=== PATIENT | female | born 1990 | race Caucasian/White ===

== ENCOUNTER → 2018-08-06 14:47 | Outpatient (CLI) | payer OTHER, SELFPAY ==
[2018-08-06 20:59] LABS: Basophils % 0.3 % (0.1-2.0); Eosinophils # 0.2 K/mm3 (0.0-0.4); Eosinophils % 1.4 % (0.1-12.0); Hematocrit 44.9 % (37.0-47.0); Hemoglobin 15.7 g/dL (12.2-16.2); Lymphocytes % 18.4 % (10-50); Mean Corpuscular HGB Conc 34.9 g/dL (31.8-35.4); Mean Corpuscular Hemoglobin 32.8 pg (27.0-31.2); Monocytes # 0.4 K/mm3 (0.1-1.0); Monocytes % 3.8 % (1.7-9.3); Neutrophils # 8.3 K/mm3 (1.8-7.8); Neutrophils % 76.1 % (37.0-80.0); Platelet Count 243 K/mm3 (142-424); Red Blood Count 4.78 M/mm3 (4.20-5.40); Red Cell Distribution Width 12.7 % (11.5-17.5); White Blood Count 10.9 K/mm3 (4.8-10.8)
[2018-08-08 08:16] LABS: Rapid Plasma Reagin Ab Titer Non Reactive (NonRea<1:1)
[2018-08-08 10:47] LABS: HIV Screen 4th Generation wRfx Non Reactive (Non Reactive); Hepatitis B Surface Antigen Negative (Negative); Hepatitis C Antibody <0.1 s/co ratio (0.0-0.9); Rubella Antibodies, IgG 0.94 index (Immune >0.99)
== END ==
PROVIDERS: Visit Provider Nurse Practitioner Obstetrics & Gynecology
DX: Z34.90 Encounter for supervision of normal pregnancy, unspecified, unspecified trimester (principal)
CPT/HCPCS: 36415; 85025; 86592; 86703; 86762; 86850; 87340; 87380; G0432

== ENCOUNTER → 2018-08-11 09:13 | Outpatient (CLI) | payer OTHER, SELFPAY ==
--- NOTE | 2018-08-11 09:16 | US_ITS ---
US OB transvaginal HISTORY: ITS.REASON: US OB Dates ORDERING PHYSICIAN: Juanito Wang MD PATIENT AGE: 28 years COMPARISON: None FINDINGS: An intrauterine gestational sac is present with a pole with a crown-rump length of 3.98cm correlating to gestational age of 11w0d. heart tones are present with an FHR of 160 bpm's. Yolk sac is noted. The amnion and chorion have not yet fused. Adnexa: 2.6 cm right corpus luteum cyst. IMPRESSION: Live intrauterine gestation at 11 weeks 0 days as described above. Estimated due date by Ultrasound is 03/02/2019
== END ==
PROVIDERS: Visit Provider Nurse Practitioner Obstetrics & Gynecology
DX: O26.841 Uterine size-date discrepancy, first trimester (principal)
CPT/HCPCS: 76817

== ENCOUNTER → 2018-10-15 13:20 | Outpatient (CLI) | payer OTHER, SELFPAY ==
--- NOTE | 2018-10-15 13:25 | US_ITS ---
US OB /maternal detail: INDICATION: ITS.REASON: US OB Complete ORDERING PHYSICIAN: Juanito Wang MD PATIENT AGE: 28 years TECHNIQUE: ultrasound transabdominal scanning. COMPARISON: No previous relevant studies. FINDINGS: Single viable intrauterine gestation. Breech position. Placenta: Anterior placenta grade . There is average amount fluid. The cervix appears satisfactory. Closed and measuring 4 cm in length. Complete survey performed and was unremarkable on the submitted images as in PACS. No discrete anomalies identified on survey imaging by technologist. Active fetus. Three-vessel cord with satisfactory umbilical cord insertion. 4- chamber heart noted. Survey of brain & ventricles unremarkable. Face and neck survey unremarkable. Diaphragm and chest views unremarkable. Abdomen: Both kidneys noted and unremarkable. Stomach noted and satisfactory. Spine: Survey of the spine satisfactory with no anomalies identified nor imaged. Both arms and legs noted. Amniotic Fluid: Adequate. Maternal adnexa: No significant findings. Measurements: Average ultrasound age 20w0d. Gestational Age 20w1d. Estimated due date by ultrasound age 1203/04/2019. Estimated weight 323 grams. BPD = 19w6d OFD = 20w6d HC = 19w5d AC = 20w0d FL = 20w0d Growth Percentile= 35 Heart Rate = 143 Cerebellum = 20w0d Humerus = 19w6d HC/AC is 1.16 (1.09-1.26). CI is 74% (70-86%). FL/BPD is 70%. FL/AC is 22%. IMPRESSION: There is a single live fetus which is in breech presentation. heart body motion noted. Average ultrasound age is 20 weeks and 0 days. All parameters correlate. No obvious anomalies. Please see above for details
== END ==
PROVIDERS: Visit Provider Nurse Practitioner Obstetrics & Gynecology
DX: Z36.0 Encounter for antenatal screening for chromosomal anomalies (principal)
CPT/HCPCS: 76811

== ENCOUNTER → 2018-11-27 10:49 | Outpatient (CLI) | payer OTHER, SELFPAY ==
[2018-11-27 12:19] LABS: Glucose,Fasting 87 mg/dL (60-105)
[2018-11-27 12:54] LABS: Glucose 1 Hour 154 mg/dL (74-106)
== END ==
PROVIDERS: Visit Provider Nurse Practitioner Obstetrics & Gynecology
DX: Z34.90 Encounter for supervision of normal pregnancy, unspecified, unspecified trimester (principal)
CPT/HCPCS: 36415; 82951

== ENCOUNTER → 2018-12-04 09:57 | Outpatient (CLI) | payer OTHER, SELFPAY ==
[2018-12-04 11:39] LABS: Glucose,Fasting 87 mg/dL (60-105)
[2018-12-04 14:03] LABS: Glucose 1 Hour 165 mg/dL (74-106); Glucose 2 Hour 144 mg/dL (74-106)
[2018-12-04 14:04] LABS: Glucose 3 Hour 94 mg/dL (74-106)
== END ==
PROVIDERS: Visit Provider Nurse Practitioner Obstetrics & Gynecology
DX: O99.814 Abnormal glucose complicating childbirth (principal)
CPT/HCPCS: 36415; 82951

== ENCOUNTER → 2019-01-13 09:32 | Outpatient (CLI) | payer OTHER, SELFPAY ==
--- NOTE | 2019-01-13 09:51 | US_ITS ---
PROCEDURE: US OB BIOPHYSICAL PROFILE CLINICAL INDICATION: US OB- BPP Growth- DFM LGA Decreased movement FINDINGS: There is a single live fetus present which is in cephalic presentation. Placenta is anterior. heart rate is 152 beats per minute. Average ultrasound age is 32 weeks and 5 days. BPD 32 weeks 1 day, OFD 32 weeks 0 day, HC 32 weeks 0 day, AC 33 weeks 1 day, FL 33 weeks 1 day. All parameters correlate. MAX is 16 cm which is within normal limits. Biophysical profile is 8 of 8 IMPRESSION: Single live fetus in cephalic presentation with an average ultrasound age of 32 weeks 5 days with a biophysical profile of 8 of 8 and MAX of 16 cm Dictated by: Jos Chiu MD 01/13/2019 18:47 Electronically signed by Jos Chiu MD in [facility] 01/13/2019 18:47
== END ==
PROVIDERS: Visit Provider Nurse Practitioner Obstetrics & Gynecology
DX: O36.60X0 Maternal care for excessive fetal growth, unspecified trimester, not applicable or unspecified (principal); O36.8131 Decreased fetal movements, third trimester, fetus 1
CPT/HCPCS: 76816; 76819

== ENCOUNTER → 2019-02-02 16:06 | Outpatient (CLI) | payer OTHER, SELFPAY | PROVIDERS: Visit Provider Nurse Practitioner Obstetrics & Gynecology | DX: Z34.90 Encounter for supervision of normal pregnancy, unspecified, unspecified trimester (principal) | CPT/HCPCS: 86403 ==

== ENCOUNTER → 2019-02-08 13:49 | Outpatient (CLI) | payer OTHER, SELFPAY ==
--- NOTE | 2019-02-08 13:50 | US_ITS ---
PROCEDURE: US OB FOLLOW UP CLINICAL INDICATION: US OB BPP Growth- LGA Position Follow-up large for gestational age COMPARISON: US OB BIOPHYSICAL PROFILE from 01/13/2019 FINDINGS: There is a single live fetus which is in cephalic presentation. heart and body motion and breathing motion noted. Cervix is closed at 4 cm. Placenta is anterior and grade 2. Heart rate is 142 beats per minute. Average ultrasound age is 34 weeks 6 days. BPD 34 weeks 3 days, OFD 35 weeks 0 days, HC 34 weeks 2 days, AC 35 weeks 2 days, FL 35 weeks 2 days.. All parameters correlate. Estimated weight is 2574 g which is 15th percentile. Biophysical profile is 8 of 8. MAX 16 cm. IMPRESSION: Live IUP at 34 weeks 6 days at 2574 g which is 15 percentile. Normal MAX. Biophysical profile 8 of 8 Anterior grade 2 placenta Dictated by: Jos Chiu MD 02/09/2019 08:19 Electronically signed by Jos Chiu MD in [facility] 02/09/2019 08:19
== END ==
PROVIDERS: Visit Provider Nurse Practitioner Obstetrics & Gynecology
DX: O32.0XX0 Maternal care for unstable lie, not applicable or unspecified (principal); O36.60X0 Maternal care for excessive fetal growth, unspecified trimester, not applicable or unspecified
CPT/HCPCS: 76816; 76819

== ENCOUNTER 2019-02-23 16:06 | Inpatient (IN) ==
--- NOTE | 2019-02-23 17:19 | Progress Note ---
Internal Medicine - PN: Subj *Date: 02/23/19 *Time: 17:15 Interval history: She is here for induction of labor. She has a very narrow pelvis and the baby's head is quite high. The baby is small for gestational age at 15th centile. As result of that we have elected to induce her labor at term. Exam Vital signs and Labs for Last 24 Hours: Temp Pulse Resp BP Pulse Ox 97.6 F 74 18 132/84 96 02/23/19 16:52 02/23/19 16:52 02/23/19 16:52 02/23/19 16:52 02/23/19 16:52 I & O for Last 24 hours: Intake & Output 02/21/19 02/22/19 02/23/19 02/24/19 11:59 11:59 11:59 11:59 Weight 255 lb - Constitutional no acute distress Assessment and Plan (1) Normal delivery procedure Current visit: Yes Status: Acute Category: Medical Code(s): O80 - Encounter for full-term uncomplicated delivery (2) Maternal obesity affecting , antepartum Current visit: Yes Status: Acute Category: Medical Code(s): O99.210 - Obesity complicating , unspecified trimester - Assessment and plan all Dx Assessment and Plan for all problems:: Her cervix is 1 to 2 cm 25% -3. I have not inserted Cervidil. We will plan to start oxytocin in the morning and ruptured membranes.
--- NOTE | 2019-02-23 17:23 | History & Physical Report ---
OB - H&P: HPI Antepartum - History of Present Illness Chief complaint: Small for gestational age, 15th centile. Narrow pelvis, term History of present illness: She is a 28-year-old 1 para 0 obese lady who had a recent ultrasound that showed the baby at only 15th centile. The head is still quite high and since she is 39 weeks and small for gestational age we have elected to induce her labor at term. She is also a smoker. - History of Present Criteria for establishing EDC:: LMP confirmed by 1st trimester US care: good care Ultrasounds: normal 1st trimester US, normal mid trimester US Obstetrical complications: growth restriction, other Medical complications: none [facility] History I have reviewed the patient's past medical history: Yes *Have you ever received a pneumonia vaccine?: No *Have you received a flu vaccine this season?: No Other Surgeries: Yes: No Previous Surgery. No: Amputation: No Fractures: No - *Social History Smoking Status: Current every day smoker Tobacco Type: cigarettes # Packs/Day (cigarettes): 1 Alcohol Intake: never Substance Use Type: marijuana *Occupational Status:: unemployed *Travel in the last 8 weeks: None Family Hx:: Coronary Artery Disease, Diabetes, Hyperlipidemia, Hypertension, Cancer Para: 0 Review of Systems - Review of Systems Review of systems:: pertinent systems reviewed and negative unless documented below Meds Home Medications Medication Instructions Recorded Confirmed Type ondansetron 4 mg disintegrating 4 mg PO Q6H #30 tab 09/03/18 02/18/19 Rx tablet prenat.vits,ata,rcq-ihqt-mnaic 1 tab PO DAILY #30 tab 09/03/18 02/18/19 Rx ferrous sulfate 325 mg (65 mg 325 mg PO DAILY #30 tab 10/01/18 02/18/19 Rx iron) tablet ranitidine HCl 150 mg tablet 150 mg PO BID #60 tab 01/07/19 02/18/19 Rx polyethylene glycol 3350 17 17 g PO DAILY #119 g 02/18/19 02/18/19 Rx gram/dose oral powder Allergies Allergy/AdvReac Type Severity Reaction Status Date / Time No Known Allergies Allergy Verified 02/18/19 09:00 OB - H&P: Exam - Physical Exam Vital signs: Temp Pulse Resp BP Pulse Ox 97.6 F 74 18 132/84 96 02/23/19 16:52 02/23/19 16:52 02/23/19 16:52 02/23/19 16:52 02/23/19 16:52 - Constitutional no acute distress - Routine HEENT Exam Head: Present: normocephalic Eye: Present: EOMI, PERRL ENT: Present: mucous membranes moist - Routine Neck Exam Present: supple, full ROM - Routine Respiratory Exam Absent: accessory muscle use (good air entry bilaterally), respiratory distress, wheezes, crackles - Routine Cardiovascular Exam Present: RRR. Absent: murmur - Routine Abdominal Exam Present: soft, normoactive bowel sounds. Absent: tenderness, distended, guarding - Routine Rectal Exam Patient deferred: visual exam, digital exam - Routine Exam Patient deferred: external exam, groin exam, perineal exam - Routine Extremities Exam Present: full ROM. Absent: cyanosis, edema - Routine Skin Exam Present: intact. Absent: cyanosis - Routine Neurological Exam Present: alert, oriented X3 - Routine Psychiatric Exam Present: normal affect OB - A/P Antepartum (1) Normal delivery procedure Current visit: Yes Status: Acute (2) Maternal obesity affecting , antepartum Current visit: Yes Status: Acute (3) Smoking history Current visit: Yes Status: Acute (4) Intrauterine growth restriction (IUGR) affecting care of mother, third trimester, single gestation Current visit: Yes Status: Acute - Additional Plan Planning to breastfeed?: No Plan: induction Additional Information:: She has a small for gestational age at term and we have elected to deliver her. We have inserted Cervidil.
[2019-02-23 18:31] LABS: Microscopic, Urine URINE MICROSCOPIC (MICROSCOPIC)
[2019-02-23 18:38] LABS: Appearance,Urine CLEAR (Clear); Blood, Urine Negative (Negative); Color,Urine YELLOW (Yellow); Glucose,Urine (UA) Negative (Negative); Ketones,Urine Negative (Negative); Leukocyte Esterase,Urine Negative (Negative); PH,Urine 5.5 (5.0-8.5); Protein,Urine Negative (Negative); Specific Gravity, Urine >= 1.030 (1.005-1.030); Urobilinogen,Urine 0.2 EU/dl (0.2)
[2019-02-23 18:40] LABS: Bilirubin,Urine Negative (Negative)
[2019-02-23 18:45] LABS: Amphetamine/Metha Screen,Urine Negative ng/mL (<1000); Barbiturates Screen,Urine Negative ng/mL (<200); Benzodiazepines Screen,Urine Negative ng/mL (<200); Cannabinoid Screen,Urine Positive ng/mL (<50); Cocaine Screen,Urine Negative ng/mL (<300); Methadone Screen,Urine Negative ng/mL (<300); Opiate Screen,Urine Negative ng/mL (<300); Phencyclidine Screen,Urine Negative ng/mL (<25)
[2019-02-23 18:50] LABS: Bacteria,Urine Trace /lpf; WBC,Urine Occasional #/hpf (0-3)
[2019-02-23 19:09] LABS: Basophils % 0.2 % (0.1-2.0); Eosinophils % 0.3 % (0.1-12.0); Hematocrit 42.1 % (37.0-47.0); Hemoglobin 14.4 g/dL (12.2-16.2); Lymphocytes # 1.7 K/mm3 (0.7-4.5); Lymphocytes % 15.1 % (10-50); Mean Corpuscular HGB Conc 34.3 g/dL (31.8-35.4); Mean Corpuscular Volume 95.6 fl (81-99); Mean Platelet Volume 10.9 fl (7.4-10.4); Monocytes # 0.4 K/mm3 (0.1-1.0); Monocytes % 3.9 % (1.7-9.3); Neutrophils % 80.5 % (37.0-80.0); Platelet Count 242 K/mm3 (142-424); Red Cell Distribution Width 13.1 % (11.5-17.5); White Blood Count 11.2 K/mm3 (4.8-10.8)
[2019-02-24 08:58] VITALS: BP 123/70
--- NOTE | 2019-02-24 09:37 | Progress Note ---
Labor Note - Subjective: Date: 02/24/19 Time: 09:35 regular contraction - Objective: NST:: Reactive Contractions:: every 2-3 minutes Effacement:: 50% Station: -3 Membranes: artificially ruptured - Fetus: Monitoring?: Yes monitoring type:: Internal Comment:: I ruptured her membranes and inserted an IUPC as well as scalp clip. - Assessment: Labor progressing?: Yes Cephalopelvic disproportion?: No Patient Problems: All Active Problems Normal delivery procedure (Acute) Maternal obesity affecting , antepartum (Acute) Smoking history (Acute) Intrauterine growth restriction (IUGR) affecting care of mother, third trimester, single gestation (Acute) (Acute) - Plan: Anesthesia for epidural?: Yes Continue to labor down?: Yes Plan for ?: No Continue to monitor?: Yes Start pushing?: No
--- NOTE | 2019-02-24 11:05 | Progress Note ---
[facility] Anesthesia Checklist - Structural Data Admitted From: Inpatient Planned Operative Procedure/s: labor epidural Consent for Planned Operative Procedure(s) Verified: Yes - Airway Assessment C-Spine Mobility Assessed: Yes TMJ Mobility Assessed: Yes Dentition: Good Dentition - Neurological Assessment Level of Consciousness: Awake, Alert, Appropriate - Anesthesia Plan Anesthesia Risk discussed: Yes Anesthesia Plan: Verified ASA Class: II Anesthesia Type: Epidural [facility] History I have reviewed the patient's past medical history: Yes *Have you ever received a pneumonia vaccine?: No *Have you received a flu vaccine this season?: No Anesthesia experience/problems:: none Other Surgeries: Yes: No Previous Surgery. No: Amputation: No Fractures: No - *Social History Smoking Status: Current every day smoker Tobacco Type: cigarettes # Packs/Day (cigarettes): 1 Alcohol Intake: never Substance Use Type: marijuana *Occupational Status:: unemployed *Travel in the last 8 weeks: None Family Hx:: Coronary Artery Disease, Diabetes, Hyperlipidemia, Hypertension, Cancer Para: 0
--- NOTE | 2019-02-24 11:44 | Progress Note ---
Labor Note - Subjective: Date: 02/24/19 Time: 11:43 regular contraction - Objective: NST:: Reactive Contractions:: every 2-3 minutes Cervical Dilation:: 5 Station: -2 Membranes: artificially ruptured - Fetus: Monitoring?: Yes monitoring type:: Internal - Assessment: Labor progressing?: Yes Cephalopelvic disproportion?: No Patient Problems: All Active Problems Normal delivery procedure (Acute) Maternal obesity affecting , antepartum (Acute) Smoking history (Acute) Intrauterine growth restriction (IUGR) affecting care of mother, third trimester, single gestation (Acute) (Acute) - Plan: Anesthesia for epidural?: Yes Continue to labor down?: Yes Plan for ?: No Continue to monitor?: Yes Start pushing?: No Continue pushing?: No
--- NOTE | 2019-02-24 12:36 | Progress Note ---
Labor Note - Subjective: Date: 02/24/19 Time: 12:35 regular contraction - Objective: NST:: Reactive Contractions:: every 2-3 minutes Cervical Dilation:: 9 Effacement:: 100% Station: 0 Membranes: artificially ruptured - Fetus: Monitoring?: Yes monitoring type:: Internal - Assessment: Labor progressing?: Yes Cephalopelvic disproportion?: No Patient Problems: All Active Problems Normal delivery procedure (Acute) Maternal obesity affecting , antepartum (Acute) Smoking history (Acute) Intrauterine growth restriction (IUGR) affecting care of mother, third trimester, single gestation (Acute) (Acute) - Plan: Anesthesia for epidural?: Yes Continue to labor down?: Yes Plan for ?: No Continue to monitor?: Yes Start pushing?: No
--- NOTE | 2019-02-24 13:56 | Progress Note ---
Labor Note - Subjective: Date: 02/24/19 Time: 13:54 regular contraction - Objective: Contractions:: every 2-3 minutes Cervical Dilation:: 9-10 Effacement:: 100% Station: +1 Membranes: artificially ruptured - Fetus: Monitoring?: Yes monitoring type:: Internal - Assessment: Labor progressing?: Yes Cephalopelvic disproportion?: No Patient Problems: All Active Problems Normal delivery procedure (Acute) Maternal obesity affecting , antepartum (Acute) Smoking history (Acute) Intrauterine growth restriction (IUGR) affecting care of mother, third trimester, single gestation (Acute) (Acute) - Plan: Anesthesia for epidural?: Yes Continue to labor down?: Yes Plan for ?: No Continue to monitor?: Yes Start pushing?: Yes
--- NOTE | 2019-02-24 14:48 | Procedure Note ---
- Delivery Note Delivery Date:: 02/24/19 Delivery Time:: 14:29 Anesthesia Type: Epidural Was labor medically induced?: Yes Induction method: per misoprostol protocol Gestational age (weeks): 39 delivered prior to 39 weeks?: No Justification for early elective delivery:: IUGR Gender: Female at 1 minute: 7 at 5 minutes: 9 LAC or MLE?: LAC Delivery Procedure:: She is a 28-year-old 1 now para 0 who was 39 weeks gestational age. She was known to have a small for gestational age as result that was brought in for induction of labor at term. She had Cervidil placed on the evening of February 23, 2019. In the morning of February 24 she had her membranes ruptured and under labor epidural progressed to full dilation. She delivered spontaneously a liveborn female child at 2:29 PM in the afternoon. Baby had Apgars of 7 at 1 minute and 9 at 5 minutes. On deliver the head the anterior shoulder then rapidly delivered followed by the rest of the infant's body atraumatically. The baby was vigorous and cried. We allowed the cord to continue to pulsate for approximately 1 minute. The cord was then doubly clamped and cut. The baby was then placed on the mother's abdomen for further care. The nurses assigned Apgars of 7 at 1 and 9 at 5 minutes. We then obtained cord blood as well as cord pH. Using gentle traction on the cord and countertraction the fundus she was able to easily deliver the placenta intact at 233. It had a normal three-vessel cord. There was a small first-degree perineal laceration that was repaired with a single interrupted 3-0 Vicryl Rapide suture. Estimated blood loss was approximately 400 cc. Laceration:: vaginal Placental Delivery Description: Spontaneous
[2019-02-25 07:06] LABS: Hematocrit 40.1 % (37.0-47.0); Hemoglobin 13.8 g/dL (12.2-16.2)
--- NOTE | 2019-02-25 08:27 | Progress Note ---
Internal Medicine - PN: Subj *Date: 02/25/19 *Time: 08:26 Interval history: She is doing well this morning. She is eating and drinking and ambulating. She is bottlefeeding. Her lochia is normal. Exam Vital signs and Labs for Last 24 Hours: Temp Pulse Resp BP Pulse Ox 98.4 F 64 18 123/70 98 02/24/19 08:00 02/24/19 08:00 02/24/19 08:00 02/24/19 08:00 02/24/19 08:00 Laboratory Results - last 24 hr 02/24/19 14:44: Cord ABG pH 7.40 02/25/19 06:45: Hgb 13.8, Hct 40.1 I & O for Last 24 hours: Intake & Output 02/22/19 02/23/19 02/24/19 02/25/19 11:59 11:59 11:59 11:59 Weight 255 lb - Constitutional no acute distress Assessment and Plan (1) Normal delivery procedure Current visit: Yes Status: Acute Category: Medical Code(s): O80 - Encounter for full-term uncomplicated delivery (2) Maternal obesity affecting , antepartum Current visit: Yes Status: Acute Category: Medical Code(s): O99.210 - Obesity complicating , unspecified trimester (3) Smoking history Current visit: Yes Status: Acute Category: Medical Code(s): Z87.891 - Personal history of nicotine dependence (4) Intrauterine growth restriction (IUGR) affecting care of mother, third trimester, single gestation Current visit: Yes Status: Acute Category: Medical Code(s): O36.5930 - Maternal care for other known or suspected poor growth, third trimester, not applicable or unspecified - Assessment and plan all Dx Assessment and Plan for all problems:: She continues to do well. We will plan to send her home tomorrow.
--- NOTE | 2019-02-25 08:32 | Discharge Summary ---
General - General Admission date:: 02/23/19 Discharge date: 02/26/19 HPI HPI: She is a 28-year-old 1 now para 1 who was 39 weeks gestational age. She was brought in for induction of labor because of a small for gestational age . Hospital Course Hospital Course: On the evening of February 23, 2019 she had Cervidil placed. The following morning she had her membranes ruptured and under labor epidural she progressed to full dilation. She delivered spontaneously a liveborn female child at 2:29 PM in the afternoon of February 24, 2019. Baby was a liveborn female child weighing 6 pounds 5 ounces with Apgars of 7 at 1 minute and 9 at 5 minutes. She has done well and has remained afebrile throughout her hospitalization. She is eating and drinking and ambulating. She is bottlef eeding. Her lochia is normal. She has O Rh+ blood, she is rubella non-immune and will receive MMR prior to discharge. She was group B streptococcus negative. She is discharged home to follow-up with me in approximately 3 weeks time. She will continue with her vitamins and iron. She was given the usual instructions with respect to limiting her activity, driving and sexual activity. She was given a prescription for Percocet 5/325 number 12 tablets. Her condition on discharge is stable and improved. Rhogam Administration: Not Indicated Objective Vital signs: Temp Pulse Resp BP Pulse Ox 98.4 F 64 18 123/70 98 02/24/19 08:00 02/24/19 08:00 02/24/19 08:00 02/24/19 08:00 02/24/19 08:00 no acute distress, cooperative Results Labs on day of discharge: Labs from last 24 hours 02/25/19 02/24/19 06:45 14:44 Hgb 13.8 Hct 40.1 Cord ABG pH 7.40 DS: Diagnosis - Discharge Diagnosis (1) Normal delivery procedure Status: Acute (2) Maternal obesity affecting , antepartum Status: Acute (3) Smoking history Status: Acute (4) Intrauterine growth restriction (IUGR) affecting care of mother, third trimester, single gestation Status: Acute Discharge Plan - Patient Discharge Instructions ACTIVITY: No heavy lifting DIET: continue same diet - Follow up Plan Disposition: Home, Self-[facility] Medications: Home Medications Medication Instructions Recorded Confirmed Type Ferrous Sulfate 325 mg PO DAILY 02/23/19 02/23/19 History Ondansetron [Zofran 4mg ODT] 4 mg PO Q6H 02/23/19 02/23/19 History Polyethylene Glycol 3350 [Miralax 17 g PO DAILY 02/23/19 02/23/19 History Powder] Vit Calc,Iron,Folic [Kpn] 1 tab PO DAILY 02/23/19 02/23/19 History raNITIdine HCl [Ranitidine HCl] 150 mg PO BID 02/23/19 02/23/19 History Oxycodone HCl/Acetaminophen 1 - 2 tab PO Q4-6H PRN #12 tab 02/25/19 Rx [Percocet 5/325mg tablet] Prescriptions/Medication Reconciliation: New Oxycodone HCl/Acetaminophen [Percocet 5/325mg tablet] 1 - 2 tab PO Q4-6H PRN #12 tab PRN Reason: Severe Pain Continued Ondansetron [Zofran 4mg ODT] 4 mg PO Q6H Ferrous Sulfate 325 mg PO DAILY raNITIdine HCl [Ranitidine HCl] 150 mg PO BID Vit Calc,Iron,Folic [Kpn] 1 tab PO DAILY Polyethylene Glycol 3350 [Miralax Powder] 17 g PO DAILY - Problem Reconciliation Problems Reviewed?: Yes
--- NOTE | 2019-02-26 10:35 | Progress Note ---
Internal Medicine - PN: Subj *Date: 02/26/19 *Time: 10:33 Interval history: PPD #2 no new complaints discharge set up per dr sandoval Exam Vital signs and Labs for Last 24 Hours: Temp Pulse Resp BP Pulse Ox 98.4 F 64 18 123/70 98 02/24/19 08:00 02/24/19 08:00 02/24/19 08:00 02/24/19 08:00 02/24/19 08:00 I & O for Last 24 hours: Intake & Output 02/23/19 02/24/19 02/25/19 02/26/19 11:59 11:59 11:59 11:59 Weight 255 lb Narrative: CONSTITUTIONAL: no acute distress HEENT: mucous membranes moist PULMONARY: breathing unlabored without audible wheezes CV: no tachycardia or visible JVD; normal LE peripheral pulses ABD: soft, NT/ND, no guarding : fundus firm at/below umbilicus SKIN: no visible rash or lesions EXT: 1+ edema LEs NEURO: alert/oriented, no altered mental status PSYCH: appropriate mood and demeanor without visible anxiety/depression Assessment and Plan (1) Normal delivery procedure Current visit: Yes Status: Acute Category: Medical Code(s): O80 - Encounter for full-term uncomplicated delivery (2) Maternal obesity affecting , antepartum Current visit: Yes Status: Acute Category: Medical Code(s): O99.210 - Obesity complicating , unspecified trimester (3) Smoking history Current visit: Yes Status: Acute Category: Medical Code(s): Z87.891 - Personal history of nicotine dependence (4) Intrauterine growth restriction (IUGR) affecting care of mother, third trimester, single gestation Current visit: Yes Status: Acute Category: Medical Code(s): O36.5930 - Maternal care for other known or suspected poor growth, third trimester, not applicable or unspecified
== END 2019-02-26 14:30 | disposition home or self-care (01) | DRG 807 ==
LOC: OB 16:06
PROVIDERS: ADMIT Nurse Practitioner Obstetrics & Gynecology; ATTEND Nurse Practitioner Obstetrics & Gynecology
CPT/HCPCS: 36415; 59025; 80305; 81001; 82800; 85014; 85018; 85025; 86850; 90686; 90707; 94761; C1758; J2405